=== PATIENT | male | born 1965 | race Caucasian/White ===

== ENCOUNTER 2019-12-03 16:42 | Inpatient (IN) | payer BC ==
[~2019-12-03] VITALS: Ht 165.1 cm; Wt 109.9 kg
[2019-12-03] MEDS ORDERED: OZEM2INJ2 SC (16:56)
[2019-12-03] MEDS ORDERED: METO1TAB87 PO (16:56)
[2019-12-03] MEDS ORDERED: DILT12SRCA PO (16:56)
[2019-12-03] MEDS ORDERED: METF-838 PO (16:56)
[2019-12-03] MEDS ORDERED: FURO40TA2 PO (16:56)
[2019-12-03] MEDS ORDERED: TRES1INJ2 SC (16:56)
[2019-12-03] MEDS ORDERED: GLIM4TAB5 PO (16:56)
[2019-12-03] MEDS ORDERED: FENO145T7 PO (16:56)
[2019-12-03] MEDS ORDERED: ELIQ2.5T PO (16:56)
[2019-12-03] MEDS ORDERED: SOTA80TA2 PO (16:56)
[2019-12-03] MEDS ORDERED: LISI-542 PO (16:56)
[2019-12-03] MEDS ORDERED: SOTA120T PO (16:56)
[2019-12-03] MEDS ORDERED: PENI500T PO (16:57)
[2019-12-03] MEDS ORDERED: ONDANSETRON 4MG/2ML VIAL IV ONE (19:45)
[2019-12-03] MEDS ORDERED: AMPICILLIN SOD/SULBACTAM SOD 3 GM in D5W MINI-BAG PLUS 100 ML IV ONE (19:45)
[2019-12-03 20:45] LABS: BASO % 0.2 % (0.0-1.0); EOS % 0.3 % (0.0-3.0); HEMATOCRIT 44.4 % (42.0-52.0); HEMOGLOBIN 14.5 g/dl (13.5-17.5); LYMPH # 2.3 10^3/uL (1.5-5.0); LYMPH % 20.5 % (24.0-44.0); MEAN CORPUSCULAR HEMOGLOBIN 29.4 pg (27.0-33.0); MEAN CORPUSCULAR HGB CONC 32.7 g/dl (32.0-36.5); MEAN CORPUSCULAR VOLUME 90.1 fl (80.0-96.0); MONO # 1.2 10^3/uL (0.0-0.8); MONO % 10.6 % (0.0-5.0); NEUTROPHILS # 7.5 10^3/uL (1.5-8.5); NEUTROPHILS % 67.9 % (36.0-66.0); PLATELET COUNT, AUTOMATED 275 10^3/uL (150-450); RED BLOOD COUNT 4.93 10^6/uL (4.30-6.10)
[2019-12-03] MEDS: MORPHINE 4 MG/ML 1ML VIAL/SYRINGE (J2270) IV PRN ×2 (20:46→22:38)
[2019-12-03 20:56] LABS: INR 1.41; PARTIAL THROMBOPLASTIN TIME 37.9 SECONDS (25.0-38.4); PROTHROMBIN TIME 17.5 SECONDS (11.8-14.0)
[2019-12-03] MEDS ORDERED: FURO80TA2 PO (20:57)
[2019-12-03] MEDS ORDERED: ELIQ5TAB PO (20:57)
[2019-12-03] MEDS ORDERED: DILT120T PO (20:57)
[2019-12-03] MEDS ORDERED: METO1TAB32 PO (20:57)
[2019-12-03] MEDS ORDERED: ROSU40TA4 PO (20:57)
[2019-12-03] MEDS ORDERED: JARD1TAB PO (20:57)
[2019-12-03] MEDS ORDERED: RA M10TA PO (20:57)
[2019-12-03] MEDS ORDERED: MULT-90 PO (21:00)
[2019-12-03] MEDS ORDERED: TRES1INJ SC (21:00)
[2019-12-03 21:08] LABS: C REACTIVE PROTEIN QUANTITATIV 11.9 MG/DL (0.00-0.30); CALCIUM LEVEL 9.3 MG/DL (8.5-10.1); CREATININE FOR GFR 1.5 MG/DL (0.70-1.30); GLOMERULAR FILTRATION RATE 51.5 (>56); POTASSIUM SERUM 3.4 MEQ/L (3.5-5.1)
[2019-12-03] MEDS ORDERED: ISOVUE-370 76% 100ML VIAL As Ordered ONE (21:20)
--- NOTE | 2019-12-03 22:04 | REPVR ---
PROCEDURE INFORMATION: Exam: CT Maxillofacial With Contrast Exam date and time: 12/03/2019 9:45 PM Age: 54 years old Clinical indication: Face pain; Additional info: Dental abscess, facial cellulitis TECHNIQUE: Imaging protocol: Computed tomography images of the face with intravenous contrast. Radiation optimization: All CT scans at this facility use at least one of these dose optimization techniques: automated exposure control; mA and/or kV adjustment per patient size (includes targeted exams where dose is matched to clinical indication); or iterative reconstruction. Contrast material: ISOVUE 370; Contrast volume: 75 ml; Contrast route: INTRAVENOUS (IV); COMPARISON: No relevant prior studies available. FINDINGS: Orbits: Orbits are normal. Globes are unremarkable. Bones/joints: No acute fracture. Sinuses: Normal. No air-fluid levels. Soft tissues: Right premaxillary soft tissue swelling with foci of gas consistent with abscess and cellulitis. There is slight rim enhancement around 1 area of gas anterior to the periodontal disease of tooth # 7 measuring approximately 20 x 9 x 13 mm with additional collection of gas with question of slight peripheral enhancement extending more cephalad, nearly to the inferior orbital rim measuring approximately 18 x 11 x 6 mm. Small lipoma at the anterior aspect of the right masseter muscle measuring approximately 13 x 19 x 38 mm. Dental: There is periodontal disease of tooth # 7. IMPRESSION: Periodontal disease involving tooth # 7 with adjacent anterior premaxillary cellulitis and abscess collections extending cephalad, essentially to the inferior orbital rim. Electronically signed by: Florian Saxena On 12/03/2019 22:03:36 PM
[2019-12-03] MEDS ORDERED: HYDROMORPHONE HCL 0.5 MG/ 0.5 ML SYRINGE (J1170 PER 1) IV PRN (23:00)
[2019-12-04] VITALS (19 sets, daily range): BP systolic 119–147; BP diastolic 67–89; O2SAT 91–98
[2019-12-04] MEDS ORDERED: D5W/0.45% SODIUM CHLORIDE 1,000 ML IV SCH (00:15)
[2019-12-04] MEDS ORDERED: PIPERACILLIN/TAZOBACTAM SOD 3.375 GM in D5W MINI-BAG PLUS 50 ML IV SCH (02:00)
[2019-12-04] MEDS ORDERED: propofoL 200 MG/20 ML VIAL As Ordered ONE (02:08)
[2019-12-04] MEDS ORDERED: LIDOCAINE 2% 100MG/5ML SDV (FOR ANES.) As Ordered ONE (02:08)
[2019-12-04] MEDS ORDERED: ROCURONIUM BROMIDE 50 MG/5 ML VIAL As Ordered ONE (02:08)
[2019-12-04] MEDS ORDERED: SUGAMMADEX SODIUM 500 MG/5 ML VIAL (BRIDION) As Ordered ONE (02:08)
[2019-12-04] MEDS ORDERED: ONDANSETRON 4MG/2ML VIAL As Ordered ONE (02:08)
[2019-12-04] MEDS ORDERED: dexameTHASONE 4 MG/ML 1ML VIAL (J1100 PER 1MG) As Ordered ONE (02:08)
[2019-12-04] MEDS ORDERED: MIDAZOLAM INJ 2MG/2ML VIAL (J2250 PER 1MG) As Ordered ONE (02:09)
[2019-12-04] MEDS ORDERED: fentaNYL 250 MCG/5 ML INJECTION (J3010) As Ordered ONE (02:09)
[2019-12-04] MEDS ORDERED: NS 1,000 ML IV SCH ×2 (02:13→03:00)
[2019-12-04] MEDS ORDERED: GLUCOSE 4GM CHEW TABLET PO PRN (02:15)
[2019-12-04] MEDS ORDERED: DEXTROSE 50% 50 ML SYRINGE IV PRN (02:15)
[2019-12-04] MEDS ORDERED: GLUCAGON INJ 1MG VIAL SC PRN (02:15)
[2019-12-04] MEDS ORDERED: MORPHINE 2 MG/ML 1ML VIAL (J2270) IV PRN (02:15)
[2019-12-04] MEDS ORDERED: MOM 30ML SUSPENSION UDC PO PRN (02:15)
--- NOTE | 2019-12-04 02:18 | HPEPDOC ---
General Date of Admission Dec 04, 2019 at 01:35 Date of Service: Dec 04, 2019 Chief Complaint The patient is a 54-year-old male admitted with a reason for visit of Right Facial Abcess. Source: Patient Timing/Duration: Day(s) (6) Severity: Moderate Associated Symptoms: Chills, Nausea, Vomiting, Other (right sided facial swelling and pain) History of Present Illness Patient is a very pleasant 54 yo male with PMH of a. fib, HTN, and minimal change disease presented to [facility] due to right facial pain, swelling, and dental abscess s/p I&D by dentist today. Reported his right upper lateral incisor crown "popped off", described it as getting loose with localized tooth and gum pain, and reported on /Tuesday the crown was re-cemented. However starting this past , he started to have left sided facial swelling and pain, and he called his dentist and was started on PCN VK. He went through I&D d rainage by his dentist today. Reported chills for 2 days lasting about 15 minutes each time; reported nausea with 1 episode of emesis. Reported some lightheadedness and dizziness. Denies any chest pain, palpitation, or dyspnea. Denies any photophobia or pain with moving his eye, reported some blurry vision which he attributed to significant facial swelling blocking visual field. Reported decreased appetite for the past few days with decreased food and fluid intake Home Medications Scheduled Apixaban (Eliquis) 5 Mg Tablet, 5 MG PO BID, (Reported) Diltiazem HCl (Diltiazem HCl) 120 Mg Tablet, 120 MG PO DAILY, (Reported) Empagliflozin (Jardiance) 10 Mg Tablet, 10 MG PO DAILY, (Reported) Fenofibrate Nanocrystallized (Fenofibrate) 145 Mg Tablet, 145 MG PO DAILY, (Reported) Furosemide (Furosemide) 80 Mg Tablet, 80 MG PO DAILY, (Reported) Glimepiride (Glimepiride) 4 Mg Tablet, 4 MG PO BID, (Reported) Insulin Degludec (Tresiba Flextouch U-200) 200 Unit/1 Ml Insuln.pen, 100 UNITS SC DAILY, (Reported) Lisinopril (Lisinopril) 5 Mg Tablet, 5 MG PO DAILY, (Reported) Melatonin (Melatonin) 10 Mg Tablet, 10 MG PO QHS, (Reported) Metformin HCl (Metformin HCl ER) 500 Mg Tab.er.24h, 1,000 MG PO BID, (Reported) Metoprolol Succinate (Metoprolol Succinate) 25 Mg Tab.er.24h, 25 MG PO QHS, (Reported) Multivitamin (Multivitamin) 1 Each Tablet, 1 TAB PO DAILY, (Reported) Rosuvastatin Calcium (Rosuvastatin Calcium) 40 Mg Tablet, 40 MG PO QHS, (Reported) Semaglutide (Ozempic) 1 Mg/0.75 Ml Pen.injctr, 1 MG SC QWEEK, (Reported) TAKES ON SUNDAYS Sotalol Hcl (Sotalol) 120 Mg Tablet, 120 MG PO BID, (Reported) Allergies Coded Allergies: No Known Allergies (Unverified , 12/03/19) Past Medical History Medical History HTN DM type 2 Minimal change disease A. fib s/p ablation without conversion Reported right thumb fracture Reported right knee MCL rupture Obesity Hyperlipidemia Appendicitis at 12 years old Surgical History Appendidectomy Social History * Smoker: Denies Alcohol: Denies A-FIB/CHADSVASC A-FIB History Current/History of A-Fib/PAF?: Yes Current PO Anticoag Therapy: Yes Age/Risk Factor Scoring CHADSVASC: CHADSVASC Response (Comments) Value Age Risk Factor Age < 65 years old 0 Gender Risk Factor Male 0 Hx of CHF No 0 Hx of HTN Yes 1 Hx of Stroke/TIA/or VTE No 0 Hx of Diabetes Yes 1 Total 2 Review of Systems Constitutional: Reports: Chills, Other (limited ROS was able to be obtained as patient is being moved to OR for procedure); Denies: Fever Eyes: Reports: Other (blurry vision. Denies eye pain or pain with eye movement); Denies: Pain Skin: Reports: Other (Right maxillary region erythema, pain, and swelling) Pulmonary: Denies: Dyspnea Cardiovascular: Denies: Chest Pain, Palpitations Gastrointestinal: Reports: Nausea, Vomiting, Other Symptoms (Decreased appetite) Physical Examination General Exam: Positive: Alert, Cooperative, Mild Distress, Other (limited exam was able to be performed as patient was being moved to OR) Eye Exam: Positive: Conjunctiva & lids normal (right lower eyelid swelling as an extension from right cheek swelling), EOMI, Other Eye Symptoms; Negative: Sclera icteric ENT Exam: Positive: Mucous membr. moist/pink, Other ENT (right upper lateral incisior crown in place) Chest Exam: Positive: Clear to auscultation, Normal air movement Heart Exam: Positive: Rate Normal, Regular Rhythm; Negative: Murmurs Skin Exam: Positive: Other skin issue (Right maxillary region moderately to severe swelling with erythema, mild right mandibular region swelling; tenderness to palpation in right maxillary region) Neuro Exam: Positive: Normal Speech Psych Exam: Positive: Mental status NL, Anxiety (mild), Memory Intact Vital Signs Vital Signs Date Time Temp Pulse Resp B/P (MAP) Pulse Ox O2 Delivery O2 Flow Rate FiO2 12/04/19 01:46 96.8 97 16 128/86 (100) Room Air 12/04/19 00:10 94 Laboratory Data Labs 24H Laboratory Tests 2 12/03/19 20:20: Immature Granulocyte % (Auto) 0.5, Neutrophils (%) (Auto) 67.9H, Lymphocytes (%) (Auto) 20.5L, Monocytes (%) (Auto) 10.6H, Eosinophils (%) (Auto) 0.3, Basophils (%) (Auto) 0.2, Neutrophils # (Auto) 7.5, Lymphocytes # (Auto) 2.3, Monocytes # (Auto) 1.2H, Eosinophils # (Auto) 0.0, Basophils # (Auto) 0.0, Nucleated Red Blood Cells % (auto) 0.0, Prothrombin Time 17.5H, Prothromb Time International Ratio 1.41, Activated Partial Thromboplast Time 37.9, Anion Gap 8, Glomerular Filtration Rate 51.5L, Lactic Acid Level 0.8, Calcium Level 9.3, C-Reactive Protein, Quantitative 11.90H 12/04/19 00:31: Coronavirus (COVID-19)(PCR) NEGATIVE CBC/BMP Laboratory Tests 12/03/19 20:20 Microbiology Microbiology 12/03/19 Blood Culture, Received Pending 12/03/19 Blood Culture, Received Pending Assessment/Plan 1. Right dental abscess leading to right facial cellulitis and right pre-orbital cellulitis. S/p PCN VK for 3 days. As patient reported his crown needed to be re-cemented, will start empiric tx with Vanco and Zosyn at this time. Blood cx ordered. Pt reported no photophobia and no pain with eye movement; EOMI. Patient is going through I&O with DMD Dr. Porter at this time. Zofran and pain meds afterwards. Will have patient on NPO except meds with IVF afterwards. Cont pulse ox with oxygen therapy. Consider facial CT in AM 2. HTN. Resume home med. Hold home med Lisinopril and lasix due to PACHECO. Cont home med Sotalol. 3. DM type 2. Hold home oral DM med and Tresiba. Will have patient on SS insulin Q6H with glucose check Q6H as pt will be NPO. Hypoglycemia protocol. 4. Hyperlipidemia. Cont home med Fenofibrate and Rosuvastatin. 5. A. fib. Resume home med Metoprolol succinate after procedure and Diltiazem after procedure with holding parameters. Resume eliquis 24 hour after procedure. 6. PACHECO, likely pre-renal 2/2 decreased oral intake. Patient reported PMH of minimal change disease after kidney biopsy but no decreased GFR and reported creatinine wnl to the best of his knowledge. Likely 2/2 dehydration from decreased oral intake. Will have patient on IVF consider IV D5 1/2NS as patient will be NPO except for meds. Trend BMP daily 7. Hypokalemia. Mild hypokalemia, likely 2/2 decreased food intake. Will replete potassium after procedure. DVT prophylaxis: SCD and TEDS; will resume eliquis 24 hrs after procedure Plan / VTE VTE Prophylaxis Ordered?: Yes GME ATTESTATION GME ATTESTATION My faculty preceptor for this patient encounter was physically present during the encounter and was fully available. All aspects of the patient interview, examination, medical decision making process, and medical care plan development were reviewed and approved by the faculty preceptor. The faculty preceptor is aware and concurs with the plan as stated in the body of this note and will attest to such by his/her cosignature. ATTENDING NOTE TIME OF SERVICE 205 AM is a 54 yr old w a hx of afib, and DM who is going to the OR for management of a dental abscess. rest per H&P above ANGELI GOMEZ DO Dec 04, 2019 02:18 BENNIE RODRIGUEZ MD Dec 04, 2019 05:51
[2019-12-04] MEDS ORDERED: ONDANSETRON 4MG/2ML VIAL IV PRN ×2 (02:30→03:00)
[2019-12-04] MEDS ORDERED: LIDOCAINE W/EPINEPHRINE 1% 20ML VIAL As Ordered ONE (02:38)
[2019-12-04] MEDS ORDERED: LIDOCAINE 2% W/EPINEPHRINE 20ML VIAL **PRES FREE As Ordered ONE (02:40)
[2019-12-04] MEDS ORDERED: ACETAMINOPHEN 1000MG 100ML IV BTL (OFIRMEV) (J0131 PER 10MG) As Ordered ONE (02:47)
[2019-12-04] MEDS ORDERED: oxyCODONE 5MG TAB PO PRN (03:00)
[2019-12-04] MEDS ORDERED: HYDROMORPHONE HCL 0.5 MG/ 0.5 ML SYRINGE (J1170 PER 1) IV PRN (03:00)
[2019-12-04] MEDS ORDERED: fentaNYL 100 MCG/2 ML INJECTION (J3010) IV PRN (03:00)
[2019-12-04] MEDS ORDERED: POTASSIUM CHLORIDE 10 MEQ SR TABLET PO ONE (03:45)
[2019-12-04] MEDS: PIPERACILLIN/TAZOBACTAM SOD 3.375 GM in D5W MINI-BAG PLUS 50 ML IV SCH ×2 (04:41→09:36)
[2019-12-04] MEDS ORDERED: VANCOMYCIN HCL 1,000 MG, VIAL MATE ADAPTER 1 EACH in D5W 250 ML IV ONE ×2 (05:00→06:00)
[2019-12-04] MEDS: HumaLOG INSULIN (NovoLOG) PER UNIT SC SCH ×5 (06:00→21:00)
[2019-12-04 06:30] LABS: HEMATOCRIT 42.1 % (42.0-52.0); HEMOGLOBIN 13.9 g/dl (13.5-17.5); MEAN CORPUSCULAR HEMOGLOBIN 30.1 pg (27.0-33.0); MEAN CORPUSCULAR VOLUME 91.1 fl (80.0-96.0); PLATELET COUNT, AUTOMATED 250 10^3/uL (150-450); RED BLOOD COUNT 4.62 10^6/uL (4.30-6.10)
[2019-12-04 06:47] LABS: BLOOD UREA NITROGEN 24 MG/DL (7-18); CALCIUM LEVEL 9.2 MG/DL (8.5-10.1); CARBON DIOXIDE LEVEL 27 MEQ/L (21-32); CHLORIDE LEVEL 106 MEQ/L (98-107); GLOMERULAR FILTRATION RATE > 60.0 (>56); GLUCOSE, FASTING 105 MG/DL (70-100); POTASSIUM SERUM 3.7 MEQ/L (3.5-5.1); SODIUM LEVEL 142 MEQ/L (136-145)
[2019-12-04 06:50] LABS: ALBUMIN 2.9 GM/DL (3.2-5.2); BILIRUBIN,DIRECT 0.2 MG/DL (0.0-0.2); BILIRUBIN,TOTAL 0.3 MG/DL (0.2-1.0); TOTAL PROTEIN 6.4 GM/DL (6.4-8.2)
[2019-12-04] MEDS ORDERED: NORCO, ANEXSIA 5/325MG TABLET (HYDROcodone/ACETAMINOPHEN) PO ONE (09:00)
[2019-12-04] MEDS: DOCUSATE SODIUM 100 MG CAP PO SCH ×2 (09:33→20:41)
[2019-12-04] MEDS: MULTIVITAMINS/MINERALS THERAP 1 TAB PO SCH (09:34)
[2019-12-04] MEDS: FENOFIBRATE 145 MG TAB (TRICOR) PO SCH (09:34)
[2019-12-04] MEDS: LR 1,000 ML IV SCH ×2 (11:10→20:41)
[2019-12-04] MEDS: SOTALOL HCL 80 MG TAB PO SCH ×2 (11:27→20:41)
[2019-12-04] MEDS ORDERED: cefTRIAXone SOD 2 GM in D5W MINI-BAG PLUS 50 ML IV SCH (16:15)
[2019-12-04] MEDS: ACETAMINOPHEN TAB 650MG DOSE (2X325MG) PO PRN (18:59)
[2019-12-04] MEDS ORDERED: VANCOMYCIN HCL 1,000 MG, VIAL MATE ADAPTER 1 EACH in D5W 250 ML IV SCH (20:00)
[2019-12-04] MEDS: METOPROLOL SUCC *XL* 25MG TAB (TopROL *XL*) PO SCH (20:41)
[2019-12-04] MEDS: ROSUVASTATIN 10 MG TAB (CRESTOR) PO SCH (20:41)
[2019-12-05] VITALS (19 sets, daily range): BP systolic 114–145; BP diastolic 73–86; O2SAT 83–98
[2019-12-05] MEDS: NORCO, ANEXSIA 5/325MG TABLET (HYDROcodone/ACETAMINOPHEN) PO PRN ×3 (04:58→21:57)
[2019-12-05] MEDS: LR 1,000 ML IV SCH ×3 (04:58→17:00)
[2019-12-05 05:49] LABS: HEMATOCRIT 40.9 % (42.0-52.0); MEAN CORPUSCULAR HEMOGLOBIN 29.5 pg (27.0-33.0); MEAN CORPUSCULAR HGB CONC 31.8 g/dl (32.0-36.5); PLATELET COUNT, AUTOMATED 318 10^3/uL (150-450); WHITE BLOOD COUNT 10.5 10^3/uL (4.0-10.0)
[2019-12-05 06:20] LABS: BLOOD UREA NITROGEN 22 MG/DL (7-18); CARBON DIOXIDE LEVEL 29 MEQ/L (21-32); CHLORIDE LEVEL 107 MEQ/L (98-107); CREATININE FOR GFR 1.17 MG/DL (0.70-1.30); GLOMERULAR FILTRATION RATE > 60.0 (>56); GLUCOSE, FASTING 80 MG/DL (70-100); POTASSIUM SERUM 3.9 MEQ/L (3.5-5.1); SODIUM LEVEL 143 MEQ/L (136-145)
[2019-12-05] MEDS: HumaLOG INSULIN (NovoLOG) PER UNIT SC SCH ×4 (08:30→20:36)
[2019-12-05] MEDS: DOCUSATE SODIUM 100 MG CAP PO SCH ×2 (08:37→20:47)
[2019-12-05] MEDS: APIXABAN 5 MG TAB (ELIQUIS) PO SCH ×2 (08:38→20:47)
[2019-12-05] MEDS: FENOFIBRATE 145 MG TAB (TRICOR) PO SCH (08:40)
[2019-12-05] MEDS: MULTIVITAMINS/MINERALS THERAP 1 TAB PO SCH (08:40)
[2019-12-05] MEDS: SOTALOL HCL 80 MG TAB PO SCH ×2 (08:41→20:46)
[2019-12-05] MEDS: AMPICILLIN SOD/SULBACTAM SOD 3 GM in D5W MINI-BAG PLUS 100 ML IV SCH ×3 (08:42→20:47)
[2019-12-05] MEDS ORDERED: AUGMENTIN BID 400MG/5ML SUSP 50ML BTL PO SCH (09:00)
[2019-12-05] MEDS: CLINDAMYCIN 300 MG in IV 1 EA IV SCH ×2 (09:59→17:00)
[2019-12-05] MEDS: ACETAMINOPHEN TAB 650MG DOSE (2X325MG) PO PRN (10:03)
--- NOTE | 2019-12-05 19:49 | IPNPDOC ---
Text Note Date of Service The patient was seen on 12/05/19. NOTE SUBJECTIVE: concerned facial erthema is persistent - notes "schmid" on right face. no vision changes or pain with extraocular movements OBJECTIVE: FOCUSED EXAMINATION: HEENT: right facial erethyma notes - erethyma improved from yesterday. no pain on bilateral extraoccular movements, vision grossly intact in both eyes LUNGS: clear on auscultation HEART: no murmur. normal s1 and s2 ABDOMEN: soft, nontender EXTREMITIES: no edema SKIN/NAILS: intact MUSCULOSKELETAL: grossly normal VITAL SIGNS: Please see below. ASSESSMENT and PLAN: 1. Right dental abscess leading to right facial cellulitis and right pre-orbital cellulitis -no photophobia and no pain with eye movement; CT reviwed - no orbital involvement -erethema improvved; no pain out of proporion on palaption. changed mabx to unasyn and clindamycin to cover for periodontal abscess and preseptal cellulitis. if no clinical improvement, will repeat imaging the the AM. plan discussed with oral surgeon 2. HTN. Resume home med. continue to Hold home med Lisinopril and lasix due to PACHECO, and normotensive blood pressure. Cont home med Sotalol. 3. DM type 2. glycemic control via insulin 4. Hyperlipidemia. Cont home med Fenofibrate and Rosuvastatin. 5. A. fib. Resume home med resumed 6. PACHECO, likely pre-renal 2/2 decreased oral intake. improved 7 VS,Fishbone, I+O VS, Fishbone, I+O Laboratory Tests 12/05/19 05:20 Vital Signs Date Time Temp Pulse Resp B/P (MAP) Pulse Ox O2 Delivery O2 Flow Rate FiO2 12/05/19 18:00 96 Room Air 12/05/19 16:00 97.4 81 18 138/86 (103) I&O- Last 24 Hours up to 6 AM 12/05/19 06:00 Intake Total 1575 ml Output Total 3125 ml Balance -1550 ml NATALIE SANDY DO Dec 05, 2019 19:49
[2019-12-05] MEDS: METOPROLOL SUCC *XL* 25MG TAB (TopROL *XL*) PO SCH (20:46)
[2019-12-05] MEDS: ROSUVASTATIN 10 MG TAB (CRESTOR) PO SCH (20:47)
[2019-12-06] VITALS (12 sets, daily range): BP systolic 118–152; BP diastolic 82–98; O2SAT 91–98
[2019-12-06] MEDS: CLINDAMYCIN 300 MG in IV 1 EA IV SCH ×3 (00:27→17:27)
[2019-12-06] MEDS: ACETAMINOPHEN TAB 650MG DOSE (2X325MG) PO PRN ×4 (00:27→15:30)
[2019-12-06] MEDS: LR 1,000 ML IV SCH ×4 (00:27→20:15)
[2019-12-06] MEDS: AMPICILLIN SOD/SULBACTAM SOD 3 GM in D5W MINI-BAG PLUS 100 ML IV SCH ×4 (03:54→20:15)
[2019-12-06] MEDS: HumaLOG INSULIN (NovoLOG) PER UNIT SC SCH ×4 (07:30→20:19)
[2019-12-06] MEDS: DOCUSATE SODIUM 100 MG CAP PO SCH ×2 (09:00→20:16)
[2019-12-06] MEDS: SOTALOL HCL 80 MG TAB PO SCH ×2 (09:19→20:17)
[2019-12-06] MEDS: FENOFIBRATE 145 MG TAB (TRICOR) PO SCH (09:20)
[2019-12-06] MEDS: APIXABAN 5 MG TAB (ELIQUIS) PO SCH ×2 (09:20→20:16)
[2019-12-06 09:21] LABS: HEMATOCRIT 40.3 % (42.0-52.0); HEMOGLOBIN 13.2 g/dl (13.5-17.5); MEAN CORPUSCULAR HGB CONC 32.8 g/dl (32.0-36.5); MEAN CORPUSCULAR VOLUME 91.6 fl (80.0-96.0); PLATELET COUNT, AUTOMATED 386 10^3/uL (150-450); WHITE BLOOD COUNT 11.1 10^3/uL (4.0-10.0)
[2019-12-06] MEDS: MULTIVITAMINS/MINERALS THERAP 1 TAB PO SCH (09:21)
[2019-12-06 09:36] LABS: BLOOD UREA NITROGEN 18 MG/DL (7-18); CALCIUM LEVEL 8.9 MG/DL (8.5-10.1); CARBON DIOXIDE LEVEL 26 MEQ/L (21-32); CHLORIDE LEVEL 109 MEQ/L (98-107); CREATININE FOR GFR 1.08 MG/DL (0.70-1.30); GLOMERULAR FILTRATION RATE > 60.0 (>56); GLUCOSE, FASTING 90 MG/DL (70-100); POTASSIUM SERUM 4.4 MEQ/L (3.5-5.1); SODIUM LEVEL 143 MEQ/L (136-145)
[2019-12-06] MEDS: ROSUVASTATIN 10 MG TAB (CRESTOR) PO SCH (20:16)
[2019-12-06] MEDS: METOPROLOL SUCC *XL* 25MG TAB (TopROL *XL*) PO SCH (20:17)
[2019-12-06] MEDS: NORCO, ANEXSIA 5/325MG TABLET (HYDROcodone/ACETAMINOPHEN) PO PRN (20:18)
--- NOTE | 2019-12-07 | IPNPDOC ---
Text Note Date of Service The patient was seen on 12/06/19. NOTE SUBJECTIVE: improving OBJECTIVE: FOCUSED EXAMINATION: HEENT: right facial erethyma notes - erethyma improved from yesterday. no pain on bilateral extraoccular movements, vision grossly intact in both eyes LUNGS: clear on auscultation HEART: no murmur. normal s1 and s2 ABDOMEN: soft, nontender EXTREMITIES: no edema SKIN/NAILS: intact MUSCULOSKELETAL: grossly normal VITAL SIGNS: Please see below. ASSESSMENT and PLAN: 1. Right dental abscess leading to right facial cellulitis and right pre-orbital cellulitis -improving. continue unasyn and cipro 2. HTN. 3. DM type 2. glycemic control via insulin 4. Hyperlipidemia. Cont home med Fenofibrate and Rosuvastatin. 5. A. fib. Resume home med resumed 6. PACHECO, likely pre-renal 2/2 decreased oral intake. improved VS,Fishbone, I+O VS, Fishbone, I+O Laboratory Tests 12/06/19 08:51 Vital Signs Date Time Temp Pulse Resp B/P (MAP) Pulse Ox O2 Delivery O2 Flow Rate FiO2 12/06/19 22:00 97.8 85 18 151/97 (115) 100 Room Air I&O- Last 24 Hours up to 6 AM 12/07/19 06:00 Intake Total 2000 ml Output Total 1225 ml Balance 775 ml NATALIE SANDY DO Dec 07, 2019 00:00
[2019-12-07] MEDS: CLINDAMYCIN 300 MG in IV 1 EA IV SCH (01:13)
[2019-12-07] MEDS: AMPICILLIN SOD/SULBACTAM SOD 3 GM in D5W MINI-BAG PLUS 100 ML IV SCH ×2 (02:48→08:09)
[2019-12-07 06:00] VITALS: BP 151/93
[2019-12-07] MEDS: LR 1,000 ML IV SCH ×2 (06:50→11:03)
[2019-12-07 07:16] LABS: HEMATOCRIT 38.8 % (42.0-52.0); HEMOGLOBIN 12.4 g/dl (13.5-17.5); MEAN CORPUSCULAR HEMOGLOBIN 29.1 pg (27.0-33.0); MEAN CORPUSCULAR VOLUME 91.1 fl (80.0-96.0); PLATELET COUNT, AUTOMATED 396 10^3/uL (150-450); RED BLOOD COUNT 4.26 10^6/uL (4.30-6.10); WHITE BLOOD COUNT 8.7 10^3/uL (4.0-10.0)
[2019-12-07 07:41] LABS: BLOOD UREA NITROGEN 15 MG/DL (7-18); CALCIUM LEVEL 8.7 MG/DL (8.5-10.1); CARBON DIOXIDE LEVEL 25 MEQ/L (21-32); CHLORIDE LEVEL 109 MEQ/L (98-107); CREATININE FOR GFR 0.81 MG/DL (0.70-1.30); GLOMERULAR FILTRATION RATE > 60.0 (>56); GLUCOSE, FASTING 123 MG/DL (70-100); POTASSIUM SERUM 4.5 MEQ/L (3.5-5.1); SODIUM LEVEL 140 MEQ/L (136-145)
[2019-12-07] MEDS: HumaLOG INSULIN (NovoLOG) PER UNIT SC SCH ×2 (08:08→12:39)
[2019-12-07] MEDS: FENOFIBRATE 145 MG TAB (TRICOR) PO SCH (08:09)
[2019-12-07] MEDS: APIXABAN 5 MG TAB (ELIQUIS) PO SCH (08:09)
[2019-12-07] MEDS: MULTIVITAMINS/MINERALS THERAP 1 TAB PO SCH (08:09)
[2019-12-07] MEDS: DOCUSATE SODIUM 100 MG CAP PO SCH (08:09)
[2019-12-07] MEDS ORDERED: AMOX875T2 PO (08:32)
[2019-12-07] MEDS ORDERED: CLEO300C2 PO (08:32)
[2019-12-07] MEDS: ACETAMINOPHEN TAB 650MG DOSE (2X325MG) PO PRN (08:39)
[2019-12-07] MEDS ORDERED: CLINDAMYCIN 150MG CAPSULE PO SCH (09:00)
[2019-12-07] MEDS: SOTALOL HCL 80 MG TAB PO SCH (10:13)
[2019-12-07] MEDS: NORCO, ANEXSIA 5/325MG TABLET (HYDROcodone/ACETAMINOPHEN) PO PRN ×2 (11:06→12:38)
[2019-12-07 14:00] VITALS: BP 140/80
[2019-12-07] MEDS ORDERED: FLUBLOK(EGG FREE)(QUAD)INFLUENZA VACC 0.5ML SYRINGE 18YRS & OLDER IM ONE (15:00)
[2019-12-07] MEDS ORDERED: AUGMENTIN 875 MG TAB PO SCH (21:00)
--- NOTE | 2019-12-07 21:20 | DS.PDOC ---
Discharge Summary General Date of Admission Dec 04, 2019 at 01:35 Date of Discharge 12/07/2019 Discharge Summary PROCEDURES PERFORMED DURING STAY: tooth abscess range ADMITTING DIAGNOSES: 1. right facial preseptal cellulitis DISCHARGE DIAGNOSES: 1.right-sided [id number] cellulitis COMPLICATIONS/CHIEF COMPLAINT: Right Facial Abcess. HISTORY OF PRESENT ILLNESS: asending right-sided infection following tooth extraction with no ocular involvement HOSPITAL COURSE: treated with IV antibiotics andtooth abscess drained. no progression of symptoms to suggest orbital involvement during the hospital course DISCHARGE MEDICATIONS: Please see below. ALLERGIES: Please see below. PHYSICAL EXAMINATION ON DISCHARGE: VITAL SIGNS: Please see below. General: Pleasant, NAD HEENT: NC, right-sided facial erythema improving Neck: No lymphadenopathy or JVD CV: RRR, Normal S1 and S2. No murmurs, gallops, or rubs. Resp: CTAB with full breath sounds. No wheezes, crackles, or rhonchi. No dullnes s to percussion. Abdomen: Bowel sounds present. Soft, NT, ND. Extremities: No swelling or edema. LABORATORY DATA: Please see below. IMAGING: CT maxillofacial PROGNOSIS: stable ACTIVITY: [As tolerated]. DIET: cardiac DISCHARGE PLAN: mf/u with oral surgeon within 1 week DISPOSITION: Home, Self-Care. DISCHARGE INSTRUCTIONS: 1. f/u with oral surgeon within 1 week ITEMS TO FOLLOWUP ON ON OUTPATIENT: 1. symptom improvement DISCHARGE CONDITION: stable TIME SPENT ON DISCHARGE: 20min Vital Signs/I&Os Vital Signs Date Time Temp Pulse Resp B/P (MAP) Pulse Ox O2 Delivery O2 Flow Rate FiO2 12/07/19 14:00 98.3 98 18 140/80 (100) 98 Room Air I&O- Last 24 Hours up to 6 AM 12/07/19 06:00 Intake Total 4170 ml Output Total 3225 ml Balance 945 ml Laboratory Data Labs 24H Laboratory Tests 2 12/07/19 06:33: Nucleated Red Blood Cells % (auto) 0.0, Anion Gap 6L, Glomerular Filtration Rate > 60.0, Calcium Level 8.7 CBC/BMP Laboratory Tests 12/07/19 06:33 Microbiology Microbiology 12/03/19 Blood Culture - Preliminary, Resulted No Growth after 72 hours. All specime... 12/03/19 Blood Culture - Preliminary, Resulted No Growth after 72 hours. All specime... Discharge Medications Scheduled Amoxicillin/Potassium Clav (Amox-Clav 875-125 mg Tablet) 1 Each Tablet, 875 MG PO BID Apixaban (Eliquis) 5 Mg Tablet, 5 MG PO BID, (Reported) Clindamycin Hcl (Cleocin HCl) 300 Mg Capsule, 300 MG PO TID Diltiazem HCl (Diltiazem HCl) 120 Mg Tablet, 120 MG PO DAILY, (Reported) Empagliflozin (Jardiance) 10 Mg Tablet, 10 MG PO DAILY, (Reported) Fenofibrate Nanocrystallized (Fenofibrate) 145 Mg Tablet, 145 MG PO DAILY, (Reported) Furosemide (Furosemide) 80 Mg Tablet, 80 MG PO DAILY, (Reported) Glimepiride (Glimepiride) 4 Mg Tablet, 4 MG PO BID, (Reported) Insulin Degludec (Tresiba Flextouch U-200) 200 Unit/1 Ml Insuln.pen, 100 UNITS SC DAILY, (Reported) Lisinopril (Lisinopril) 5 Mg Tablet, 5 MG PO DAILY, (Reported) Melatonin (Melatonin) 10 Mg Tablet, 10 MG PO QHS, (Reported) Metformin HCl (Metformin HCl ER) 500 Mg Tab.er.24h, 1,000 MG PO BID, (Reported) Metoprolol Succinate (Metoprolol Succinate) 25 Mg Tab.er.24h, 25 MG PO QHS, (Reported) Multivitamin (Multivitamin) 1 Each Tablet, 1 TAB PO DAILY, (Reported) Rosuvastatin Calcium (Rosuvastatin Calcium) 40 Mg Tablet, 40 MG PO QHS, (Rep orted) Semaglutide (Ozempic) 1 Mg/0.75 Ml Pen.injctr, 1 MG SC QWEEK, (Reported) TAKES ON SUNDAYS Sotalol Hcl (Sotalol) 120 Mg Tablet, 120 MG PO BID, (Reported) Allergies Coded Allergies: No Known Allergies (Unverified , 12/03/19) NATALIE SANDY DO Dec 07, 2019 21:20
--- NOTE | 2019-12-07 22:04 | DS.PDOC ---
Discharge Summary General Date of Admission Dec 04, 2019 at 01:35 Date of Discharge 12/07/19 Discharge Summary PROCEDURES PERFORMED DURING STAY: [None]. ADMITTING DIAGNOSES: 1. preseptal cellulitis DISCHARGE DIAGNOSES: 1. preseptal cellulitis COMPLICATIONS/CHIEF COMPLAINT: Right Facial Abcess. HISTORY OF PRESENT ILLNESS: right-sided facial erythema following a dental extraction. no ocular symptoms HOSPITAL COURSE: CT mass official cleared for any orbital edema or fat stranding. no visual symptoms. No pain with extraocular movements. CT maxillofacial showed periodontal abscesss DISCHARGE MEDICATIONS: Please see below. ALLERGIES: Please see below. PHYSICAL EXAMINATION ON DISCHARGE: VITAL SIGNS: Please see below. General: Pleasant, NAD HEENT: NC, right-sided facial hair edema significantly improving. Neck: No lymphadenopathy or JVD CV: RRR, Normal S1 and S2. No murmurs, gallops, or rubs. Resp: CTAB with full breath sounds. No wheezes, crackles, or rhonchi. No dullne ss to percussion. Abdomen: Bowel sounds present. Soft, NT, ND. Extremities: No swelling or edema. LABORATORY DATA: Please see below. IMAGING: CT negative for orbital involvement PROGNOSIS:stable ACTIVITY: as tolerated DIET: heart healthy DISCHARGE PLAN: right-sided preseptal cellulitus DISPOSITION: Home, Self-Care. DISCHARGE INSTRUCTIONS: 1. follow up with oral surgeon within one week ITEMS TO FOLLOWUP ON ON OUTPATIENT: 1. cellulitis resolution DISCHARGE CONDITION: stable TIME SPENT ON DISCHARGE:20 min Vital Signs/I&Os Vital Signs Date Time Temp Pulse Resp B/P (MAP) Pulse Ox O2 Delivery O2 Flow Rate FiO2 12/07/19 14:00 98.3 98 18 140/80 (100) 98 Room Air I&O- Last 24 Hours up to 6 AM 12/07/19 06:00 Intake Total 4170 ml Output Total 3225 ml Balance 945 ml Laboratory Data Labs 24H Laboratory Tests 2 12/07/19 06:33: Nucleated Red Blood Cells % (auto) 0.0, Anion Gap 6L, Glomerular Filtration Rate > 60.0, Calcium Level 8.7 CBC/BMP Laboratory Tests 12/07/19 06:33 Microbiology Microbiology 12/03/19 Blood Culture - Preliminary, Resulted No Growth after 72 hours. All specime... 12/03/19 Blood Culture - Preliminary, Resulted No Growth after 72 hours. All specime... Discharge Medications Scheduled Amoxicillin/Potassium Clav (Amox-Clav 875-125 mg Tablet) 1 Each Tablet, 875 MG PO BID Apixaban (Eliquis) 5 Mg Tablet, 5 MG PO BID, (Reported) Clindamycin Hcl (Cleocin HCl) 300 Mg Capsule, 300 MG PO TID Diltiazem HCl (Diltiazem HCl) 120 Mg Tablet, 120 MG PO DAILY, (Reported) Empagliflozin (Jardiance) 10 Mg Tablet, 10 MG PO DAILY, (Reported) Fenofibrate Nanocrystallized (Fenofibrate) 145 Mg Tablet, 145 MG PO DAILY, (Reported) Furosemide (Furosemide) 80 Mg Tablet, 80 MG PO DAILY, (Reported) Glimepiride (Glimepiride) 4 Mg Tablet, 4 MG PO BID, (Reported) Insulin Degludec (Tresiba Flextouch U-200) 200 Unit/1 Ml Insuln.pen, 100 UNITS SC DAILY, (Reported) Lisinopril (Lisinopril) 5 Mg Tablet, 5 MG PO DAILY, (Reported) Melatonin (Melatonin) 10 Mg Tablet, 10 MG PO QHS, (Reported) Metformin HCl (Metformin HCl ER) 500 Mg Tab.er.24h, 1,000 MG PO BID, (Reported) Metoprolol Succinate (Metoprolol Succinate) 25 Mg Tab.er.24h, 25 MG PO QHS, (Reported) Multivitamin (Multivitamin) 1 Each Tablet, 1 TAB PO DAILY, (Reported) Rosuvastatin Calcium (Rosuvastatin Calcium) 40 Mg Tablet, 40 MG PO QHS, (Reported) Semaglutide (Ozempic) 1 Mg/0.75 Ml Pen.injctr, 1 MG SC QWEEK, (Reported) TAKES ON SUNDAYS Sotalol Hcl (Sotalol) 120 Mg Tablet, 120 MG PO BID, (Reported) Allergies Coded Allergies: No Known Allergies (Unverified , 12/03/19) NATALIE SANDY DO Dec 07, 2019 22:04
--- NOTE | 2019-12-27 12:28 | RO ---
DATE OF OPERATION: 12/04/2019 PREOPERATIVE DIAGNOSIS: Right facial abscess. POSTOPERATIVE DIAGNOSIS: Right facial abscess. PROCEDURE: Extraction of tooth #7 and incision and drainage of right facial abscess. COMPLICATIONS: None. ANESTHESIA: General. SPECIMEN: Teeth. ESTIMATED BLOOD LOSS: 5 mL. Extraction of tooth 7 was performed. Incision and drainage of right canine space abscess done. Candy drain placed and secured with 3-0 silk. Patient was extubated when criteria was meet by anesthesia and transfer to recovery in stable condition. Castro ZAMORA
== END 2019-12-07 14:42 | disposition home or self-care (01) | DRG 383 ==
LOC: M ED 16:42 → M ED INP 12-04 01:35 → M PCU 12-04 04:01 → M MSPAV 12-06 14:25
PROVIDERS: ADMIT Dentist Oral and Maxillofacial Surgery; ATTEND Internal Medicine
PROC: 0C9 Mouth and Throat, Drainage (ICD-10-PCS; 2019-12-04)
PROC: 0CDWXZ1 Extraction of Upper Tooth, Multiple, External Approach (ICD-10-PCS; principal; 2019-12-04 01:30)
DX: L02.01 Cutaneous abscess of face (principal); I10 Essential (primary) hypertension; I48.91 Unspecified atrial fibrillation; E11.9 Type 2 diabetes mellitus without complications; E78.5 Hyperlipidemia, unspecified; L03.213 Periorbital cellulitis; Z79.01 Long term (current) use of anticoagulants; Z79.4 Long term (current) use of insulin; Z79.899 Other long term (current) drug therapy; E66.9 Obesity, unspecified; K04.7 Periapical abscess without sinus; E87.6 Hypokalemia; Z68.39 Body mass index [BMI] 39.0-39.9, adult

== ENCOUNTER → 2021-10-29 | Outpatient (CLI) | payer BC ==
[~2021-10-29] MED LIST: AMOX875T2 PO; CLEO300C2 PO; DILT120T PO; DILT12SRCA PO; ELIQ2.5T PO; ELIQ5TAB PO; FENO145T7 PO; FURO40TA2 PO; FURO80TA2 PO; GLIM4TAB5 PO; JARD1TAB PO; LISI5TAB11 PO; METF-838 PO; METO1TAB32 PO; METO1TAB87 PO; MULT-90 PO; OZEM2INJ2 SC; PENI500T PO; RA M10TA PO; ROSU40TA4 PO; SOTA120T PO; SOTA80TA2 PO; TRES1INJ SC; TRES1INJ2 SC
[2021-10-29 19:25] LABS: HEMATOCRIT 43.3 % (42.0-52.0); MEAN CORPUSCULAR HEMOGLOBIN 28.5 pg (27.0-33.0); MEAN CORPUSCULAR HGB CONC 32.3 g/dl (32.0-36.5); PLATELET COUNT, AUTOMATED 354 10^3/uL (150-450); RED BLOOD COUNT 4.92 10^6/uL (4.30-6.10); WHITE BLOOD COUNT 7.4 10^3/uL (4.0-10.0)
[2021-10-29 20:02] LABS: CALCIUM LEVEL 9.4 MG/DL (8.5-10.1); CREATININE FOR GFR 1.66 MG/DL (0.70-1.30); GLOMERULAR FILTRATION RATE 45.5 (>56); POTASSIUM SERUM 3.3 MEQ/L (3.5-5.1)
[2021-10-29 20:03] LABS: ALBUMIN 3.7 GM/DL (3.2-5.2); BILIRUBIN,TOTAL 0.3 MG/DL (0.2-1.0); TOTAL PROTEIN 6.9 GM/DL (6.4-8.2)
== END ==
LOC: M WUC 15:23
PROVIDERS: ATTEND Internal Medicine Cardiovascular Disease
DX: Z01.89 Encounter for other specified special examinations (principal)

== ENCOUNTER → 2021-11-17 | Outpatient (CLI) | payer BC ==
[2021-11-17 19:45] LABS: MEAN CORPUSCULAR HEMOGLOBIN 29.2 pg (27.0-33.0); MEAN CORPUSCULAR HGB CONC 32.6 g/dl (32.0-36.5); MEAN CORPUSCULAR VOLUME 89.6 fl (80.0-96.0); PLATELET COUNT, AUTOMATED 356 10^3/uL (150-450); WHITE BLOOD COUNT 10.5 10^3/uL (4.0-10.0)
[2021-11-17 20:23] LABS: ALBUMIN 3.9 GM/DL (3.2-5.2); BILIRUBIN,TOTAL 0.4 MG/DL (0.2-1.0); CALCIUM LEVEL 9.3 MG/DL (8.5-10.1); CREATININE FOR GFR 1.85 MG/DL (0.70-1.30); GLOMERULAR FILTRATION RATE 40.2 (>56); POTASSIUM SERUM 3.5 MEQ/L (3.5-5.1)
== END ==
LOC: M WUC 15:57
PROVIDERS: ATTEND Internal Medicine Cardiovascular Disease
DX: D64.9 Anemia, unspecified (principal)

== ENCOUNTER → 2021-11-27 | Outpatient (REF) | payer BC ==
[2021-11-27 10:19] LABS: HEMATOCRIT 41.3 % (42.0-52.0); HEMOGLOBIN 13.3 g/dl (13.5-17.5); MEAN CORPUSCULAR HEMOGLOBIN 29.2 pg (27.0-33.0); MEAN CORPUSCULAR HGB CONC 32.2 g/dl (32.0-36.5); MEAN CORPUSCULAR VOLUME 90.8 fl (80.0-96.0); PLATELET COUNT, AUTOMATED 284 10^3/uL (150-450); RED BLOOD COUNT 4.55 10^6/uL (4.30-6.10); WHITE BLOOD COUNT 7.5 10^3/uL (4.0-10.0)
[2021-11-27 10:54] LABS: ALBUMIN 3.8 GM/DL (3.2-5.2); BILIRUBIN,TOTAL 0.3 MG/DL (0.2-1.0); CALCIUM LEVEL 9.3 MG/DL (8.5-10.1); CREATININE FOR GFR 1.56 MG/DL (0.70-1.30); GLOMERULAR FILTRATION RATE 48.9 (>56); POTASSIUM SERUM 4.5 MEQ/L (3.5-5.1); TOTAL PROTEIN 6.5 GM/DL (6.4-8.2)
== END ==
LOC: M LAB REF 10:07
PROVIDERS: ATTEND Internal Medicine Cardiovascular Disease
DX: D64.9 Anemia, unspecified (principal); E11.9 Type 2 diabetes mellitus without complications

== ENCOUNTER → 2021-12-18 | Outpatient (REF) | payer BC ==
[2021-12-18 10:03] LABS: HEMATOCRIT 45.8 % (42.0-52.0); HEMOGLOBIN 14.8 g/dl (13.5-17.5); MEAN CORPUSCULAR HEMOGLOBIN 29.1 pg (27.0-33.0); MEAN CORPUSCULAR HGB CONC 32.3 g/dl (32.0-36.5); PLATELET COUNT, AUTOMATED 337 10^3/uL (150-450); RED BLOOD COUNT 5.09 10^6/uL (4.30-6.10); WHITE BLOOD COUNT 8.8 10^3/uL (4.0-10.0)
[2021-12-18 11:12] LABS: ALBUMIN 4.3 GM/DL (3.2-5.2); BILIRUBIN,TOTAL 0.4 MG/DL (0.2-1.0); CALCIUM LEVEL 9.6 MG/DL (8.5-10.1); CREATININE FOR GFR 1.59 MG/DL (0.70-1.30); GLOMERULAR FILTRATION RATE 47.8 (>56); POTASSIUM SERUM 4.3 MEQ/L (3.5-5.1); TOTAL PROTEIN 7.3 GM/DL (6.4-8.2)
== END ==
LOC: M LAB REF 09:55
PROVIDERS: ATTEND Internal Medicine Cardiovascular Disease
DX: D64.9 Anemia, unspecified (principal); E11.9 Type 2 diabetes mellitus without complications

== ENCOUNTER → 2021-12-29 | Outpatient (REF) | payer BC ==
[2021-12-29 11:05] LABS: HEMATOCRIT 47.8 % (42.0-52.0); HEMOGLOBIN 15.3 g/dl (13.5-17.5); MEAN CORPUSCULAR HEMOGLOBIN 28.7 pg (27.0-33.0); MEAN CORPUSCULAR VOLUME 89.7 fl (80.0-96.0); PLATELET COUNT, AUTOMATED 344 10^3/uL (150-450); RED BLOOD COUNT 5.33 10^6/uL (4.30-6.10); WHITE BLOOD COUNT 8.3 10^3/uL (4.0-10.0)
[2021-12-29 11:40] LABS: ALBUMIN 4.1 GM/DL (3.2-5.2); BILIRUBIN,TOTAL 0.4 MG/DL (0.2-1.0); CALCIUM LEVEL 9.5 MG/DL (8.5-10.1); CREATININE FOR GFR 1.57 MG/DL (0.70-1.30); GLOMERULAR FILTRATION RATE 48.5 (>56); POTASSIUM SERUM 4.1 MEQ/L (3.5-5.1); TOTAL PROTEIN 7.2 GM/DL (6.4-8.2)
== END ==
LOC: M LAB REF 10:05
PROVIDERS: ATTEND Internal Medicine Cardiovascular Disease
DX: I48.91 Unspecified atrial fibrillation (principal)

== ENCOUNTER → 2021-12-29 | Outpatient (REF) | payer BC ==
[2021-12-29 11:11] LABS: HEMOGLOBIN A1c 8.2 %
[2021-12-29 11:38] LABS: CALCIUM LEVEL 9.6 MG/DL (8.5-10.1); CHOLESTEROL RISK RATIO 4.343 (<5); CREATININE FOR GFR 1.55 MG/DL (0.70-1.30); GLOMERULAR FILTRATION RATE 49.3 (>56); POTASSIUM SERUM 4.3 MEQ/L (3.5-5.1)
[2021-12-29 12:10] LABS: CREATININE, URINE 20.4 MG/DL; MAU/CREAT RATIO 2225.4 MCG/MG (0.0-30.0)
== END ==
LOC: M LAB REF 10:02
PROVIDERS: ATTEND Internal Medicine
DX: E11.65 Type 2 diabetes mellitus with hyperglycemia (principal)

== ENCOUNTER → 2022-02-09 | Outpatient (REF) | payer BC ==
[2022-02-09 11:58] LABS: HEMATOCRIT 48.6 % (42.0-52.0); HEMOGLOBIN 15.8 g/dl (13.5-17.5); MEAN CORPUSCULAR HEMOGLOBIN 28.5 pg (27.0-33.0); MEAN CORPUSCULAR HGB CONC 32.5 g/dl (32.0-36.5); MEAN CORPUSCULAR VOLUME 87.6 fl (80.0-96.0); PLATELET COUNT, AUTOMATED 339 10^3/uL (150-450); RED BLOOD COUNT 5.55 10^6/uL (4.30-6.10); WHITE BLOOD COUNT 9.1 10^3/uL (4.0-10.0)
[2022-02-09 14:54] LABS: BILIRUBIN,TOTAL 0.4 MG/DL (0.2-1.0); CALCIUM LEVEL 9.4 MG/DL (8.5-10.1); CREATININE FOR GFR 1.52 MG/DL (0.70-1.30); GLOMERULAR FILTRATION RATE 50.2 (>56); POTASSIUM SERUM 3.9 MEQ/L (3.5-5.1); TOTAL PROTEIN 7.1 GM/DL (6.4-8.2)
== END ==
LOC: M LAB REF 10:52
PROVIDERS: ATTEND Internal Medicine Cardiovascular Disease
DX: E11.8 Type 2 diabetes mellitus with unspecified complications (principal); I48.91 Unspecified atrial fibrillation

== ENCOUNTER → 2022-03-09 | Outpatient (REF) | payer BC ==
[2022-03-09 11:00] LABS: BASO # 0.1 10^3/uL (0.0-0.2); BASO % 0.5 % (0.0-1.0); EOS # 0.2 10^3/uL (0.0-0.5); EOS % 1.5 % (0.0-3.0); HEMATOCRIT 46.3 % (42.0-52.0); LYMPH # 3.3 10^3/uL (1.5-5.0); LYMPH % 32.7 % (24.0-44.0); MEAN CORPUSCULAR HEMOGLOBIN 28.5 pg (27.0-33.0); MEAN CORPUSCULAR HGB CONC 32.4 g/dl (32.0-36.5); MONO # 1.1 10^3/uL (0.0-0.8); MONO % 10.9 % (2.0-8.0); NEUTROPHILS # 5.5 10^3/uL (1.5-8.5); NEUTROPHILS % 53.9 % (36.0-66.0); PLATELET COUNT, AUTOMATED 308 10^3/uL (150-450); RED BLOOD COUNT 5.26 10^6/uL (4.30-6.10); WHITE BLOOD COUNT 10.2 10^3/uL (4.0-10.0)
[2022-03-09 11:37] LABS: ALKALINE PHOSPHATASE 72 U/L (46-116); ALT/SGPT 25 U/L (7.0-40); AST/SGOT 23 U/L (<34); BILIRUBIN,TOTAL 0.5 MG/DL (0.3-1.2); BLOOD UREA NITROGEN 29 MG/DL (9-23); CARBON DIOXIDE LEVEL 27 MMOL/L (20-31); CHLORIDE LEVEL 104 MMOL/L (98-107); CREATININE FOR GFR 1.29 MG/DL (0.70-1.30); GLOMERULAR FILTRATION RATE > 60.0 (>56); GLUCOSE, FASTING 119 MG/DL (60-100); POTASSIUM SERUM 3.9 MMOL/L (3.5-5.1); SODIUM LEVEL 139 MMOL/L (136-145); TOTAL PROTEIN 6.8 G/DL (5.7-8.2)
== END ==
LOC: M LAB REF 09:54
PROVIDERS: ATTEND Internal Medicine
DX: Z01.818 Encounter for other preprocedural examination (principal)

== ENCOUNTER → 2022-04-06 | Outpatient (CLI) | payer BC | LOC: M LABSMTC 08:02 | PROVIDERS: ATTEND Orthopaedic Surgery | DX: Z11.52 Encounter for screening for COVID-19 (principal) ==

== ENCOUNTER → 2022-04-28 | Outpatient (REF) | payer BC ==
[2022-04-28 11:12] LABS: HEMATOCRIT 47.3 % (42.0-52.0); HEMOGLOBIN 15.5 g/dl (13.5-17.5); MEAN CORPUSCULAR HEMOGLOBIN 29.1 pg (27.0-33.0); MEAN CORPUSCULAR HGB CONC 32.8 g/dl (32.0-36.5); MEAN CORPUSCULAR VOLUME 88.7 fl (80.0-96.0); PLATELET COUNT, AUTOMATED 306 10^3/uL (150-450); RED BLOOD COUNT 5.33 10^6/uL (4.30-6.10); WHITE BLOOD COUNT 12.6 10^3/uL (4.0-10.0)
[2022-04-28 11:43] LABS: ALBUMIN 4.2 G/DL (3.2-5.2); BILIRUBIN,TOTAL 0.5 MG/DL (0.3-1.2); CALCIUM LEVEL 9.6 MG/DL (8.5-10.1); CREATININE FOR GFR 1.42 MG/DL (0.70-1.30); GLOMERULAR FILTRATION RATE 54.3 (>56); POTASSIUM SERUM 4.5 MMOL/L (3.5-5.1); TOTAL PROTEIN 6.7 G/DL (5.7-8.2)
== END ==
LOC: M LAB REF 08:39
PROVIDERS: ATTEND Internal Medicine Cardiovascular Disease
DX: D64.9 Anemia, unspecified (principal); E11.9 Type 2 diabetes mellitus without complications

== ENCOUNTER → 2022-06-09 | Outpatient (REF) | payer BC ==
[2022-06-09 12:09] LABS: HEMOGLOBIN A1c 8.4 % (4.0-6.0)
[2022-06-09 12:12] LABS: ALBUMIN 4.1 G/DL (3.2-5.2); BILIRUBIN,TOTAL 0.3 MG/DL (0.3-1.2); CALCIUM LEVEL 9.3 MG/DL (8.5-10.1); CHOLESTEROL RISK RATIO 4.63 (<5); CREATININE FOR GFR 1.39 MG/DL (0.70-1.30); GLOMERULAR FILTRATION RATE 55.7 (>56); HDL CHOLESTEROL 27.2 MG/DL (>40); LDL CHOLESTEROL 48.2 MG/DL (<100); NON-HDL-C 98.8 MG/DL; TOTAL PROTEIN 6.7 G/DL (5.7-8.2)
== END ==
LOC: M LAB REF 08:36
PROVIDERS: ATTEND Internal Medicine Cardiovascular Disease
DX: E11.9 Type 2 diabetes mellitus without complications (principal); E78.5 Hyperlipidemia, unspecified

== ENCOUNTER → 2022-09-01 | Outpatient (REF) | payer BC ==
[2022-09-01 11:30] LABS: HEMOGLOBIN A1c 7.3 % (4.0-6.0)
[2022-09-01 11:37] LABS: ALBUMIN 4.2 G/DL (3.2-5.2); BILIRUBIN,TOTAL 0.5 MG/DL (0.3-1.2); CALCIUM LEVEL 9.1 MG/DL (8.5-10.1); CHOLESTEROL RISK RATIO 4.77 (<5); CREATININE FOR GFR 1.33 MG/DL (0.70-1.30); GLOMERULAR FILTRATION RATE 58.6 (>56); HDL CHOLESTEROL 26.8 MG/DL (>40); LDL CHOLESTEROL 49.6 MG/DL (<100); NON-HDL-C 101.2 MG/DL; POTASSIUM SERUM 3.9 MMOL/L (3.5-5.1); TOTAL PROTEIN 6.6 G/DL (5.7-8.2)
== END ==
LOC: M LAB REF 08:54
PROVIDERS: ATTEND Internal Medicine Cardiovascular Disease
DX: E11.9 Type 2 diabetes mellitus without complications (principal); E78.5 Hyperlipidemia, unspecified

== ENCOUNTER → 2022-12-07 | Outpatient (CLI) | payer BC ==
[2022-12-07 19:20] LABS: HEMATOCRIT 47.7 % (42.0-52.0); HEMOGLOBIN 15.6 g/dl (13.5-17.5); MEAN CORPUSCULAR HEMOGLOBIN 30.2 pg (27.0-33.0); MEAN CORPUSCULAR HGB CONC 32.7 g/dl (32.0-36.5); MEAN CORPUSCULAR VOLUME 92.3 fl (80.0-96.0); PLATELET COUNT, AUTOMATED 320 10^3/uL (150-450); RED BLOOD COUNT 5.17 10^6/uL (4.30-6.10); WHITE BLOOD COUNT 8.8 10^3/uL (4.0-10.0)
[2022-12-07 19:27] LABS: HEMOGLOBIN A1c 7.3 % (4.0-6.0)
[2022-12-07 19:47] LABS: ALBUMIN 4.2 G/DL (3.2-5.2); BILIRUBIN,TOTAL 0.4 MG/DL (0.3-1.2); CHOLESTEROL RISK RATIO 4.17 (<5); CREATININE FOR GFR 1.44 MG/DL (0.70-1.30); GLOMERULAR FILTRATION RATE 53.5 (>56); HDL CHOLESTEROL 29.2 MG/DL (>40); LDL CHOLESTEROL 48.8 MG/DL (<100); NON-HDL-C 92.8 MG/DL; POTASSIUM SERUM 3.9 MMOL/L (3.5-5.1)
== END ==
LOC: M WUC 15:39
PROVIDERS: ATTEND Internal Medicine Cardiovascular Disease
DX: E11.9 Type 2 diabetes mellitus without complications (principal); E78.5 Hyperlipidemia, unspecified; D64.9 Anemia, unspecified

== ENCOUNTER → 2023-03-23 | Outpatient (CLI) | payer BC ==
[2023-03-23 20:17] LABS: HEMOGLOBIN A1c 6.7 % (4.0-6.0)
[2023-03-23 20:32] LABS: CALCIUM LEVEL 10.2 MG/DL (8.3-10.6); CHOLESTEROL RISK RATIO 4.3 (<5); CREATININE FOR GFR 1.35 MG/DL (0.70-1.30); GLOMERULAR FILTRATION RATE 57.4 (>49); HDL CHOLESTEROL 30.4 MG/DL (>40); LDL CHOLESTEROL 53.4 MG/DL (<100); NON-HDL-C 100.6 MG/DL; POTASSIUM SERUM 4.3 MMOL/L (3.5-5.1)
== END ==
LOC: M WUC 15:47
PROVIDERS: ATTEND Internal Medicine
DX: E11.65 Type 2 diabetes mellitus with hyperglycemia (principal)

== ENCOUNTER → 2023-04-21 | Outpatient (REF) | LOC: M EMP 09:09 | PROVIDERS: ATTEND Family Medicine | DX: Z20.822 Contact with and (suspected) exposure to COVID-19 (principal) ==

== ENCOUNTER → 2023-05-17 | Outpatient (REF) | payer BC ==
[2023-05-17 10:11] LABS: BASO # 0.1 10^3/uL (0.0-0.2); BASO % 0.8 % (0.0-1.0); EOS # 0.2 10^3/uL (0.0-0.5); EOS % 1.5 % (0.0-3.0); HEMATOCRIT 47.6 % (42.0-52.0); HEMOGLOBIN 15.5 g/dl (13.5-17.5); LYMPH # 2.7 10^3/uL (1.5-5.0); LYMPH % 27.3 % (24.0-44.0); MEAN CORPUSCULAR HEMOGLOBIN 30.3 pg (27.0-33.0); MEAN CORPUSCULAR HGB CONC 32.6 g/dl (32.0-36.5); MEAN CORPUSCULAR VOLUME 93.2 fl (80.0-96.0); MONO # 1.1 10^3/uL (0.0-0.8); MONO % 10.5 % (2.0-8.0); NEUTROPHILS % 59.6 % (36.0-66.0); PLATELET COUNT, AUTOMATED 322 10^3/uL (150-450); RED BLOOD COUNT 5.11 10^6/uL (4.30-6.10)
[2023-05-17 10:38] LABS: LIPASE 32 U/L (12-53)
[2023-05-17 10:40] LABS: AMYLASE 83 U/L (30-118)
[2023-05-17 10:41] LABS: ALBUMIN 4.7 G/DL (3.2-5.2); ALKALINE PHOSPHATASE 97 U/L (46-116); ALT/SGPT 28 U/L (7.0-40); AST/SGOT 22 U/L (<34); BILIRUBIN,TOTAL 0.3 MG/DL (0.3-1.2); BLOOD UREA NITROGEN 33 MG/DL (9-23); CALCIUM LEVEL 9.8 MG/DL (8.3-10.6); CARBON DIOXIDE LEVEL 29 MMOL/L (20-31); CHLORIDE LEVEL 101 MMOL/L (98-107); CHOLESTEROL LEVEL 140 MG/DL (<200); CHOLESTEROL RISK RATIO 4.76 (<5); CREATININE FOR GFR 1.28 MG/DL (0.70-1.30); GLOMERULAR FILTRATION RATE > 60.0 (>49); GLUCOSE, FASTING 166 MG/DL (74-106); HDL CHOLESTEROL 29.4 MG/DL (>40); NON-HDL-C 110.6 MG/DL; POTASSIUM SERUM 3.7 MMOL/L (3.5-5.1); SODIUM LEVEL 138 MMOL/L (136-145); TOTAL PROTEIN 7.1 G/DL (5.7-8.2); TRIGLYCERIDES LEVEL 323 MG/DL (<150)
[2023-05-17 10:46] LABS: HEMOGLOBIN A1c 6.7 % (4.0-6.0)
== END ==
LOC: M LAB REF 09:51
PROVIDERS: ATTEND Internal Medicine Cardiovascular Disease
DX: D64.9 Anemia, unspecified (principal); E11.9 Type 2 diabetes mellitus without complications; E78.5 Hyperlipidemia, unspecified

== ENCOUNTER → 2023-07-19 | Outpatient (REF) | payer BC ==
[2023-07-19 12:04] LABS: BASO # 0.1 10^3/uL (0.0-0.2); BASO % 1.1 % (0.0-1.0); EOS # 0.4 10^3/uL (0.0-0.5); EOS % 3.4 % (0.0-3.0); HEMATOCRIT 48.9 % (42.0-52.0); HEMOGLOBIN 15.9 g/dl (13.5-17.5); LYMPH # 3.6 10^3/uL (1.5-5.0); MEAN CORPUSCULAR HEMOGLOBIN 30.6 pg (27.0-33.0); MEAN CORPUSCULAR HGB CONC 32.5 g/dl (32.0-36.5); MONO # 1.2 10^3/uL (0.0-0.8); MONO % 10.1 % (2.0-8.0); NEUTROPHILS % 52.9 % (36.0-66.0); PLATELET COUNT, AUTOMATED 335 10^3/uL (150-450); WHITE BLOOD COUNT 11.4 10^3/uL (4.0-10.0)
[2023-07-19 12:26] LABS: BILIRUBIN,TOTAL 0.4 MG/DL (0.3-1.2); CALCIUM LEVEL 9.9 MG/DL (8.3-10.6); CHOLESTEROL RISK RATIO 3.95 (<5); CREATININE FOR GFR 1.36 MG/DL (0.70-1.30); GLOMERULAR FILTRATION RATE 56.9 (>49); HDL CHOLESTEROL 31.1 MG/DL (>40); LDL CHOLESTEROL 43.1 MG/DL (<100); NON-HDL-C 91.9 MG/DL; POTASSIUM SERUM 5.3 MMOL/L (3.5-5.1)
[2023-07-19 12:31] LABS: HEMOGLOBIN A1c 7.3 % (4.0-6.0)
== END ==
LOC: M LAB REF 09:23
PROVIDERS: ATTEND Internal Medicine Cardiovascular Disease
DX: D64.9 Anemia, unspecified (principal); E11.9 Type 2 diabetes mellitus without complications; E78.5 Hyperlipidemia, unspecified

== ENCOUNTER → 2023-07-19 | Outpatient (REF) | payer BC | LOC: M LAB REF 09:28 | PROVIDERS: ATTEND Internal Medicine | DX: Z12.5 Encounter for screening for malignant neoplasm of prostate (principal) ==

== ENCOUNTER → 2023-10-14 | Outpatient (REF) | payer BC ==
[~2023-10-14] MED LIST changes: -ROSU40TA4 PO; +ROSU40TA63 PO
[2023-10-14 10:47] LABS: BASO # 0.1 10^3/uL (0.0-0.2); BASO % 0.5 % (0.0-1.0); EOS # 0.2 10^3/uL (0.0-0.5); EOS % 1.5 % (0.0-3.0); HEMATOCRIT 45.8 % (42.0-52.0); HEMOGLOBIN 15.3 g/dl (13.5-17.5); LYMPH # 3.8 10^3/uL (1.5-5.0); LYMPH % 33.8 % (24.0-44.0); MEAN CORPUSCULAR HEMOGLOBIN 30.7 pg (27.0-33.0); MEAN CORPUSCULAR HGB CONC 33.4 g/dl (32.0-36.5); MONO # 1.1 10^3/uL (0.0-0.8); MONO % 9.3 % (2.0-8.0); NEUTROPHILS # 6.2 10^3/uL (1.5-8.5); NEUTROPHILS % 54.5 % (36.0-66.0); PLATELET COUNT, AUTOMATED 318 10^3/uL (150-450); RED BLOOD COUNT 4.98 10^6/uL (4.30-6.10); WHITE BLOOD COUNT 11.4 10^3/uL (4.0-10.0)
[2023-10-14 10:57] LABS: HEMOGLOBIN A1c 7.7 % (4.0-6.0)
[2023-10-14 11:22] LABS: ALBUMIN 4.6 G/DL (3.2-5.2); BILIRUBIN,TOTAL 0.2 MG/DL (0.3-1.2); CALCIUM LEVEL 9.5 MG/DL (8.3-10.6); CHOLESTEROL RISK RATIO 5.08 (<5); CREATININE FOR GFR 1.39 MG/DL (0.70-1.30); GLOMERULAR FILTRATION RATE 55.5 (>49); LDL CHOLESTEROL 24.8 MG/DL (<100); POTASSIUM SERUM 4.1 MMOL/L (3.5-5.1); TOTAL PROTEIN 6.9 G/DL (5.7-8.2)
== END ==
LOC: M LAB REF 09:37
PROVIDERS: ATTEND Internal Medicine Cardiovascular Disease
DX: D64.9 Anemia, unspecified (principal); E11.9 Type 2 diabetes mellitus without complications; E78.5 Hyperlipidemia, unspecified

== ENCOUNTER 2023-11-15 12:36 | Emergency (ER) | payer BC ==
[~2023-11-15] VITALS: Ht 165.1 cm; Wt 45.5 kg
[2023-11-15 13:34] LABS: BASO # 0.1 10^3/uL (0.0-0.2); BASO % 0.4 % (0.0-1.0); EOS # 0.1 10^3/uL (0.0-0.5); EOS % 0.6 % (0.0-3.0); HEMATOCRIT 54.2 % (42.0-52.0); HEMOGLOBIN 17.9 g/dl (13.5-17.5); LYMPH # 3.6 10^3/uL (1.5-5.0); LYMPH % 22.4 % (24.0-44.0); MEAN CORPUSCULAR HEMOGLOBIN 30.7 pg (27.0-33.0); MONO # 1.1 10^3/uL (0.0-0.8); MONO % 6.7 % (2.0-8.0); NEUTROPHILS # 11.2 10^3/uL (1.5-8.5); NEUTROPHILS % 69.1 % (36.0-66.0); PLATELET COUNT, AUTOMATED 335 10^3/uL (150-450); RED BLOOD COUNT 5.83 10^6/uL (4.30-6.10); WHITE BLOOD COUNT 16.2 10^3/uL (4.0-10.0)
[2023-11-15 14:00] LABS: CK-MB VALUE MASS 5.9 NG/ML (<3.6); CREATININE FOR GFR 1.36 MG/DL (0.70-1.30); GLOMERULAR FILTRATION RATE 56.9 (>49); MAGNESIUM LEVEL 2.2 MG/DL (1.8-2.4); POTASSIUM SERUM 4.2 MMOL/L (3.5-5.1)
[2023-11-15 14:05] LABS: MB/CK RELATIVE INDEX 2.73 (< OR =4); THYROID STIMULATING HORMONE 2.595 uIU/ML (0.55-4.78)
[2023-11-15 15:00] LABS: CK-MB VALUE MASS 4.7 NG/ML (<3.6); MB/CK RELATIVE INDEX 2.55 (< OR =4)
[2023-11-15] MEDS ORDERED: ISOVUE-370 76% 100ML VIAL As Ordered ONE (15:41)
[2023-11-15 15:42] VITALS: BP 114/70
[2023-11-15] MEDS: METOPROLOL TART 25 MG TABLET PO ONE (15:42)
[2023-11-15] MEDS ORDERED: METO1TAB7 PO (18:14)
[2023-11-15 18:33] VITALS: BP 96/65; TEMP 97.2; O2SAT 97
== END 2023-11-15 18:45 | disposition home or self-care (01) ==
LOC: M ED 12:36
DX: I48.91 Unspecified atrial fibrillation (principal); R91.1 Solitary pulmonary nodule; I51.7 Cardiomegaly; I25.84 Coronary atherosclerosis due to calcified coronary lesion; E11.9 Type 2 diabetes mellitus without complications; I10 Essential (primary) hypertension; E78.5 Hyperlipidemia, unspecified; N18.30 Chronic kidney disease, stage 3 unspecified; Z86.79 Personal history of other diseases of the circulatory system; Z79.2 Long term (current) use of antibiotics; Z79.01 Long term (current) use of anticoagulants; Z79.811 Long term (current) use of aromatase inhibitors; Z79.4 Long term (current) use of insulin; Z79.899 Other long term (current) drug therapy
CPT/HCPCS: 36415; 71045; 71275; 80048; 82550; 82553; 83735; 83880; 84443; 84484; 85025; 93005; 93041; 94760; 99285; Q9967

== ENCOUNTER → 2023-11-21 | Outpatient (REF) | payer BC ==
[~2023-11-21] MED LIST changes: +METO1TAB7 PO
[2023-11-21 10:47] LABS: HEMOGLOBIN 15.6 g/dl (13.5-17.5); MEAN CORPUSCULAR HEMOGLOBIN 30.7 pg (27.0-33.0); MEAN CORPUSCULAR HGB CONC 32.5 g/dl (32.0-36.5); MEAN CORPUSCULAR VOLUME 94.5 fl (80.0-96.0); PLATELET COUNT, AUTOMATED 265 10^3/uL (150-450); RED BLOOD COUNT 5.08 10^6/uL (4.30-6.10); WHITE BLOOD COUNT 11.9 10^3/uL (4.0-10.0)
== END ==
LOC: M LAB REF 08:51
PROVIDERS: ATTEND Internal Medicine Cardiovascular Disease
DX: I48.19 Other persistent atrial fibrillation (principal)

== ENCOUNTER → 2024-01-18 | Outpatient (REF) | payer BC ==
[~2024-01-18] MED LIST changes: -ROSU40TA63 PO; +ROSU40TA81 PO
[2024-01-18 11:35] LABS: CALCIUM LEVEL 9.7 MG/DL (8.3-10.6); CHOLESTEROL RISK RATIO 4.59 (<5); CREATININE FOR GFR 1.48 MG/DL (0.70-1.30); GLOMERULAR FILTRATION RATE 51.4 (>49); HDL CHOLESTEROL 25.9 MG/DL (>40); LDL CHOLESTEROL 49.1 MG/DL (<100); NON-HDL-C 93.1 MG/DL; POTASSIUM SERUM 4.3 MMOL/L (3.5-5.1)
[2024-01-18 11:36] LABS: CREATININE, URINE 19.5 MG/DL; MAU/CREAT RATIO 425.6 MCG/MG (0.0-30.0)
[2024-01-18 11:46] LABS: HEMOGLOBIN A1c 7.5 % (4.0-6.0)
== END ==
LOC: M LAB REF 08:40
PROVIDERS: ATTEND Internal Medicine
DX: E11.65 Type 2 diabetes mellitus with hyperglycemia (principal); Z79.4 Long term (current) use of insulin

== ENCOUNTER → 2024-02-08 | Outpatient (REF) | payer BC ==
[2024-02-08 14:02] LABS: HEMATOCRIT 46.3 % (42.0-52.0); MEAN CORPUSCULAR HEMOGLOBIN 29.4 pg (27.0-33.0); MEAN CORPUSCULAR HGB CONC 32.4 g/dl (32.0-36.5); MEAN CORPUSCULAR VOLUME 90.8 fl (80.0-96.0); PLATELET COUNT, AUTOMATED 301 10^3/uL (150-450); WHITE BLOOD COUNT 9.7 10^3/uL (4.0-10.0)
[2024-02-08 14:32] LABS: ALKALINE PHOSPHATASE 105 U/L (40-129); ALT/SGPT 30 U/L (7.0-40); AST/SGOT 21 U/L (<34); BILIRUBIN,TOTAL 0.4 MG/DL (0.3-1.2); BLOOD UREA NITROGEN 24 MG/DL (9-23); CALCIUM LEVEL 10.1 MG/DL (8.3-10.6); CARBON DIOXIDE LEVEL 26 MMOL/L (20-31); CHLORIDE LEVEL 103 MMOL/L (98-107); CREATININE FOR GFR 1.15 MG/DL (0.70-1.30); GLOMERULAR FILTRATION RATE > 60.0 (>49); GLUCOSE, FASTING 150 MG/DL (74-106); POTASSIUM SERUM 3.8 MMOL/L (3.5-5.1); SODIUM LEVEL 139 MMOL/L (136-145)
[2024-02-08 14:34] LABS: FERRITIN 40.8 NG/ML (10.5-307.3)
[2024-02-08 14:46] LABS: HEPATITIS B SURFACE ANTIGEN NEGATIVE (NEGATIVE)
[2024-02-08 14:59] LABS: HIV 1&2 SCREEN NEGATIVE (NEGATIVE)
[2024-02-08 15:07] LABS: HEPATITIS C VIRUS ABY INDEX < 0.02 INDEX (<0.8)
[2024-02-09 10:12] LABS: TRANSFERRIN 319 mg/dL (188-341)
== END ==
LOC: M LAB REF 11:52
PROVIDERS: ATTEND Dermatology
DX: S60.529A Blister (nonthermal) of unspecified hand, initial encounter (principal); W18.30XA Fall on same level, unspecified, initial encounter; Y92.009 Unspecified place in unspecified non-institutional (private) residence as the place of occurrence of the external cause

== ENCOUNTER → 2024-02-13 | Outpatient (REF) | payer BC | LOC: M SFHCDERM 08:20 | PROVIDERS: ATTEND Dermatology | DX: S60.529A Blister (nonthermal) of unspecified hand, initial encounter (principal); W18.30XA Fall on same level, unspecified, initial encounter; Y92.009 Unspecified place in unspecified non-institutional (private) residence as the place of occurrence of the external cause ==